=== PATIENT | male | born 1945 | race Hispanic/Latino ===

== ENCOUNTER 2018-08-15 19:04 | Emergency (ER) | payer OTHER ==
[2018-08-15] MEDS ORDERED: DEXAMETHASONE 10 MG/ML VIAL ONE (19:36)
[2018-08-15] MEDS ORDERED: HYDROCODONE/APAP 5/325 MG TAB ONE (19:37)
[2018-08-15] MEDS ORDERED: DIAZEPAM 2 MG TABLET ONE (19:37)
--- NOTE | 2018-08-15 19:54 | EDPHYS ---
Physician Documentation [facility] Name: Wilfredo Alonso Age: 72 yrs Sex: Male : 1945 Arrival Date: 08/15/2018 Time: 19:07 Bed 6 Private MD: ED Physician Guanakito Ozuna HPI: 08/15 19:38 This 72 yrs old Male presents to ER via Ambulatory with complaints of Neck rn Pain, >24Hrs Old. 19:38 The patient or guardian complains of pain, that is acute. The symptoms are located rn right neck. Onset: The symptoms/episode began/occurred 3 day(s) ago. Associated signs and symptoms: The patient has no apparent associated signs or symptoms, Pertinent negatives: chills, constipation, fever, headache, bladder incontinence, bowel incontinence, nausea, numbness, tingling, vomiting, weakness. The pain does not radiate. Modifying factors: The symptoms are alleviated by nothing. the symptoms are aggravated by movement. Severity of symptoms: At their worst the symptoms were moderate, in the emergency department the symptoms are unchanged. The patient has not experienced similar symptoms in the past. The patient has not recently seen a physician. REports 3-4 days of neck pain right sided, non-radiating, no trauma, gradual onset, hurts to turn head, no assoc neurological symptoms, reports negative MRI cervical spine 3 months ago. . Historical: - Allergies: 19:11 No Known Allergies; ch - Home Meds: 19:11 doxazosin 4 mg oral tab 1 tab once daily [Active]; methimazole 5 mg Oral tab 1 tab ch three times a week [Active]; aspirin 81 mg Oral chew 1 tab once daily [Active]; Vitamin D Oral [Active]; - PMHx: 19:11 Hypertension; erectile disfunction; ch - PSHx: 19:11 hand; ch - Immunization history:: Adult Immunizations up to date, Flu vaccine is not up to date. - Social history:: Smoking status: Smoking status: Smoking status: Patient/guardian denies using tobacco, Patient uses alcohol, admits to "couple of beers" a day. pt had some rios shine today. Patient/guardian denies using street drugs. - Ebola Screening: : Patient negative for fever greater than or equal to 101.5 degrees Fahrenheit, and additional compatible Ebola Virus Disease symptoms Patient denies exposure to infectious person Patient denies travel to an Ebola-affected area in the 21 days before illness onset No symptoms or risks identified at this time. - Family history:: not pertinent. - Hospitalizations: : No recent hospitalization is reported. ROS: 19:38 Constitutional: Negative for fever, chills, and weight loss, Eyes: Negative for injury, rn pain, redness, and discharge, Neck: + neck pain, no injury or swelling Cardiovascular: Negative for chest pain, palpitations, and edema, Respiratory: Negative for shortness of breath, cough, wheezing, and pleuritic chest pain, Abdomen/GI: Negative for abdominal pain, nausea, vomiting, diarrhea, and constipation, Back: Negative for injury and pain, : Negative for injury, bleeding, discharge, and swelling, MS/Extremity: Negative for injury and deformity, Skin: Negative for injury, rash, and discoloration, Neuro: Negative for headache, weakness, numbness, tingling, and seizure. Exam: 19:38 Constitutional: This is a well developed, well nourished patient who is awake, alert, rn and in no acute distress. Head/Face: Normocephalic, atraumatic. Eyes: Pupils equal round and reactive to light, extra-ocular motions intact. Lids and lashes normal. Conjunctiva and sclera are non-icteric and not injected. Cornea within normal limits. Periorbital areas with no swelling, redness, or edema. Neck: Trachea midline, no thyromegaly or masses palpated, no crepitus, no midline tenderness Cardiovascular: Regular rate and rhythm with a normal S1 and S2. No gallops, murmurs, or rubs. No JVD. No pulse deficits. Skin: Warm, dry with normal turgor. Normal color with no rashes, no lesions, and no evidence of cellulitis. MS/ Extremity: Pulses equal, no cyanosis. Neurovascular intact. Full, normal range of motion. Equal circumference. Neuro: Awake and alert, GCS 15, oriented to person, place, time, and situation. Cranial nerves II-XII grossly intact. Motor strength 5/5 in all extremities. Sensory grossly intact. Cerebellar exam normal. Vital Signs: 19:11 BP 104 / 80; Pulse 54; Resp 16; Temp 98.9; Pulse Ox 99% on R/A; Weight 97.52 kg; Height ch 5 ft. 11 in. (180.34 cm); Pain 9/10; 19:11 Body Mass Index 29.99 (97.52 kg, 180.34 cm) [facility]: 19:14 Patient medically screened. rn 19:50 Differential diagnosis: Cervical Discogenic Pain Cervical Raiculopathy cervical strain, rn fatuma. Data reviewed: vital signs, nurses notes, and as a result, I will discharge patient. Counseling: I had a detailed discussion with the patient and/or guardian regarding: the historical points, exam findings, and any diagnostic results supporting the discharge/admit diagnosis, the need for outpatient follow up, to return to the emergency department if symptoms worsen or persist or if there are any questions or concerns that arise at home. Response to treatment: the patient's symptoms have mildly improved after treatment, and as a result, I will discharge patient. ED course: Pt requesting to be discharged, states wants to be in his bed, mild improvement, no recent trauma or focal neurological symptoms and negative somewhat recent MRI of cervical spine, will treat as muscle spasm/torticollis, will dc home as requested by patient.. Administered Medications: 19:23 CANCELLED (Duplicate Order): Decadron - Dexamethasone 10 mg IVP once rn 19:34 Drug: Valium 2 mg Route: PO; lp1 20:04 Follow up: Response: No adverse reaction aj1 19:34 Drug: [place] 5 mg-325 mg 1 tabs Route: PO; lp1 20:03 Follow up: Response: No adverse reaction aj1 19:34 Drug: Decadron 10 mg Route: IM; Site: left deltoid; lp1 20:03 Follow up: Response: No adverse reaction aj1 Disposition: 08/15/18 19:53 Discharged to Home. Impression: Torticollis. - Condition is Stable. - Discharge Instructions: Acute Torticollis, Adult. - Prescriptions for Cyclobenzaprine 10 mg Oral Tablet - take 1 tablet by ORAL route every 8 hours As needed; 20 tablet. Medrol (Bennie) 4 mg Oral Tablets, Dose Pack - take 1 tablet by ORAL route as directed - follow package instructions; 1 packet. - Medication Reconciliation Form, Thank You Letter, Antibiotic Education, Prescription Opioid Use form. - Follow up: Private Physician; When: As needed; Reason: Recheck today's complaints, Re-evaluation by your physician. - Problem is new. - Symptoms have improved. Signatures: Mary Ann Alvarez, RN RN Shayla Delgado RN RN aj1 Guanakito Ozuna MD MD rn Pena, Laura RN RN lp1 Corrections: (The following items were deleted from the chart) 19: 19:20 IV Saline Lock ordered. rn rn : 19:20 Decadron - Dexamethasone 10 mg IVP once ordered. rn rn 20:11 19:53 08/15/2018 19:53 Discharged to Home. Impression: Torticollis. Condition is aj1 Stable. Forms are Medication Reconciliation Form, Thank You Letter, Antibiotic Education, Prescription Opioid Use. Follow up: Private Physician; When: As needed; Reason: Recheck today's complaints, Re-evaluation by your physician. Problem is new. Symptoms have improved. rn
--- NOTE | 2018-08-15 19:54 | ER ---
Nurse's Notes [facility] Name: Wilfredo Alonso Age: 72 yrs Sex: Male : 1945 Arrival Date: 08/15/2018 Time: 19:07 Bed 6 Private MD: Diagnosis: Torticollis Presentation: 08/15 19:08 Presenting complaint: Patient states: pain to neck for the past 4-5 days. no trauma. ch Transition of care: patient was not received from another setting of care. Acute neurological deficit: none identified. Onset of symptoms was August 11, 2018. Risk Assessment: Do you want to hurt yourself or someone else? Patient reports no desire to harm self or others. Initial Sepsis Screen: Does the patient meet any 2 criteria? No. Patient's initial sepsis screen is negative. Does the patient have a suspected source of infection? No. Patient's initial sepsis screen is negative. Care prior to arrival: None. 19:08 Method Of Arrival: Ambulatory 19:08 Acuity: AIDA 4 19:21 Mechanism of Injury: No Mechanism of Injury. Triage Assessment: 19:11 General: Appears in no apparent distress. uncomfortable, Behavior is cooperative, ch appropriate for age. 19:21 General: Smells of alcohol. Historical: - Allergies: 19:11 No Known Allergies; - Home Meds: 19:11 doxazosin 4 mg oral tab 1 tab once daily [Active]; methimazole 5 mg Oral tab 1 tab ch three times a week [Active]; aspirin 81 mg Oral chew 1 tab once daily [Active]; Vitamin D Oral [Active]; - PMHx: 19:11 Hypertension; erectile disfunction; ch - PSHx: 19:11 hand; - Immunization history:: Adult Immunizations up to date, Flu vaccine is not up to date. - Social history:: Smoking status: Smoking status: Smoking status: Patient/guardian denies using tobacco, Patient uses alcohol, admits to "couple of beers" a day. pt had some rios shine today. Patient/guardian denies using street drugs. - Ebola Screening: : Patient negative for fever greater than or equal to 101.5 degrees Fahrenheit, and additional compatible Ebola Virus Disease symptoms Patient denies exposure to infectious person Patient denies travel to an Ebola-affected area in the 21 days before illness onset No symptoms or risks identified at this time. - Family history:: not pertinent. - Hospitalizations: : No recent hospitalization is reported. Screenin:20 Abuse screen: Denies threats or abuse. Denies injuries from another. Nutritional ch screening: No deficits noted. Tuberculosis screening: No symptoms or risk factors identified. Fall Risk None identified. Assessment: 19:15 General: Appears in no apparent distress. uncomfortable, Behavior is cooperative, aj1 agitated. Pain: Complains of pain in right side of neck Pain does not radiate. Pain currently is 8 out of 10 on a pain scale. Aggravated by repositioning. Neuro: Level of Consciousness is awake, alert, obeys commands, Oriented to person, place, time, situation. Cardiovascular: Patient's skin is warm and dry. Respiratory: Airway is patent Respiratory effort is even, unlabored, Respiratory pattern is regular, symmetrical. GI: No signs and/or symptoms were reported involving the gastrointestinal system. : No signs and/or symptoms were reported regarding the genitourinary system. EENT: No signs and/or symptoms were reported regarding the EENT system. Derm: No signs and/or symptoms reported regarding the dermatologic system. Skin is pink, warm \\T\\ dry. normal. Musculoskeletal: Range of motion: Patient reports pain when turning his head to the side. 19:30 Reassessment: Patient is in room screaming and cussing. States "Where is the doctor. aj1 Tell him to get his ass back here! I need something for this pain! How long does it take to write a fucking prescription" Explained to patient that the doctor wrote an order to medicate him here to help ease his pain, another nurse is getting his pain medication and will be in his room within a few minutes. 19:50 Reassessment: Patient is in his room screaming and cussing again. Patient states that aj1 he wants to leave right now. Notified Dr. Ozuna. 20:07 Reassessment: While explaining discharge instructions to patient, patient states that aj1 he is upset that we did not take care of his pain during his visit. Explained to patient that we have medicated him for his pain, but it has not been enough time for the medications to take effect. Offered to patient to allow him to stay and make sure pain medications administered are effective, patient declines, states that he wants to leave now. Patient was assisted to his car via wheelchair. Vital Signs: 19:11 BP 104 / 80; Pulse 54; Resp 16; Temp 98.9; Pulse Ox 99% on R/A; Weight 97.52 kg; Height 5 ft. 11 in. (180.34 cm); Pain 9/10; 19:11 Body Mass Index 29.99 (97.52 kg, 180.34 cm) ED Course: 19:07 Patient arrived in ED. 19:08 Triage completed. 19:11 Arm band placed on right wrist. Patient placed in an exam room, on a stretcher. 19:13 Shayla Delgado, RN is Primary Nurse. aj1 19:14 Guanakito Ozuna MD is Attending Physician. rn 19:20 No apparent distress. Appears restless. 19:20 Patient has correct armband on for positive identification. Bed in low position. Call light in reach. Side rails up X 1. Adult w/ patient. 19:20 No provider procedures requiring assistance completed. 20:10 Patient did not have IV access during this emergency room visit. aj1 Administered Medications: 19:23 CANCELLED (Duplicate Order): Decadron - Dexamethasone 10 mg IVP once rn 19:34 Drug: Valium 2 mg Route: PO; lp1 20:04 Follow up: Response: No adverse reaction aj 19:34 Drug: [place] 5 mg-325 mg 1 tabs Route: PO; lp1 20:03 Follow up: Response: No adverse reaction [facility] 19:34 Drug: Decadron 10 mg Route: IM; Site: left deltoid; lp1 20:03 Follow up: Response: No adverse reaction aj Outcome: 19:53 Discharge ordered by . rn 20:11 Discharged to home via wheelchair. aj1 20:11 Condition: good 20:11 Discharge instructions given to patient, Instructed on discharge instructions, follow up and referral plans. medication usage, Demonstrated understanding of instructions, follow-up care, medications. 20:11 Patient left the ED. aj1 Signatures: Mary Ann Alvarez, RN RN Shayla Delgado RN RN aj Guanakito Ozuna MD MD rn Pena, Laura, RN RN lp
== END 2018-08-15 20:11 | disposition home or self-care (01) ==
LOC: ER 19:04
DX: M43.6 Torticollis (principal); I10 Essential (primary) hypertension; Z79.82 Long term (current) use of aspirin
CPT/HCPCS: 96372; 99283; J1100

== ENCOUNTER 2022-01-23 11:45 | Emergency (ER) | payer OTHER ==
--- OUTSIDE RECORDS SUMMARY | 2022-01-23 11:48 | XMS REPORT | Continuity of Care Document ---
:1945 Author Organization [facility] t Address [address] [place] [address] Care Team Providers Name Role Phone Caio Benedict Attending Clinician Unavailable Caio Benedict Attending Clinician Unavailable Caio Benedict Admitting Clinician Unavailable Payers Payer Name Policy Type Policy Number Effective Date Expiration Date S ource Problems This patient has no known problems. Allergies, Adverse Reactions, Alerts Allergy Allergy Status Severity Reaction(s) Onset Inactive Treating Comm ents Source Name Type Date Date Clinician No Known Drug Active [facility] Medications This patient has no known medications. Vital Signs Vital Name Observation Time Observation Value Comments Source Height/Length Measured 2021-08-21 10:52:50 180 cm Weight Dosing 2021-08-21 10:52:50 94.52 kg Height/Length Measured 2021-08-21 10:50:35 180 cm Weight Dosing 2021-08-21 10:50:35 94.52 kg Height/Length Measured 2020-01-13 17:57:39 Weight Dosing 2020-01-13 17:57:39 Procedures This patient has no known procedures. Encounters Start End Encounter Admission Attending Care Care Encounter Source Date/Time Date/Time Type Type Clinicians Facility Department ID 2020-01-13 2020-01-13 Outpatient 2 Abad Benedict [facility] [id number] 17:33:00 17:33:00 Abad Benedict [facility] 2020-01-13 2020-01-13 Outpatient 2 Abad Benedict [facility] [id number] 17:33:00 17:33:00 Abad Benedict [id number] [facility] Results This patient has no known results.
--- NOTE | 2022-01-23 13:12 | RAD REPORT ---
EXAM DESCRIPTION: RAD - Foot Left 3 View - 01/23/2022 12:59 pm CLINICAL HISTORY: foreign body, welding wire COMPARISON: No comparisons FINDINGS/IMPRESSION: No acute fracture. No malalignment. Plantar aspect calcaneal spurring. Mild mid foot degenerative changes. Tiny linear radiopaque metallic foreign body within the subcutaneous tissu es of the heel at the region of suspicion.
--- NOTE | 2022-01-23 13:36 | EDPHYS ---
Physician Documentation [facility] Name: Wilfredo Alonso Age: 76 yrs Sex: Male : 1945 Arrival Date: 01/23/2022 Time: 11:47 Bed 24 Private MD: ED Physician Guanakito Ozuna HPI: 01/23 13:33 This 76 yrs old Male presents to ER via Ambulatory with complaints of Foot rn Pain. 13:33 The complaints affect the left foot. Onset: The symptoms/episode began/occurred 1.5 rn month(s) ago. Modifying factors: The symptoms are alleviated by nothing, the symptoms are aggravated by weight bearing. Associated signs and symptoms: Pertinent negatives: fever, warmth. Severity of symptoms: At their worst the symptoms were moderate, in the emergency department the symptoms have resolved. The patient has not experienced similar symptoms in the past. Pt reports stepped on piece of wire 1.5 months ago, left heel, has been bothering him since then, [facility]'t [facility] so came here to see if we could cut it out. NO fever or drainage.. Historical: - Allergies: 12:18 No Known Allergies; ss - PMHx: 12:18 erectile disfunction; Hypertension; ss - Immunization history:: Last tetanus immunization: up to date < 5 years ago. - Social history:: Smoking status: Patient denies any tobacco usage or history of. - Family history:: not pertinent. - Hospitalizations: : No recent hospitalization is reported. ROS: 13:33 MS/extremity: Positive for pain, Negative for erythema, paresthesias. rn 13:33 Constitutional: Negative for fever, chills, and weight loss, MS/Extremity: + foreign body left heel Skin: Negative for injury, rash, and discoloration. Exam: 13:33 Constitutional: This is a well developed, well nourished patient who is awake, alert, rn and in no acute distress. MS/ Extremity: Pulses equal, no cyanosis. Neurovascular intact. Full, normal range of motion. Equal circumference. + area of swelling and tenderness left heel, no erythema or fluctuance Vital Signs: 12:15 BP 158 / 68; Pulse 82; Resp 16; Temp 98.6(TE); Pulse Ox 98% on R/A; Weight 92.99 kg; ss Height 5 ft. 6 in. (167.64 cm); Pain 3/10; 12:18 BP 153 / 81; Pulse 50; Resp 18; Pulse Ox 97% on R/A; bh1 12:55 BP 131 / 61; Pulse 52; Resp 18; Pulse Ox 98% on R/A; bh1 13:56 BP 142 / 68; Pulse 65; Resp 18; Temp 98.3(O); Pulse Ox 98% on R/A; bh1 12:15 Body Mass Index 33.09 (92.99 kg, 167.64 cm) ss MDM: 12:02 Patient medically screened. rn 13:33 Differential diagnosis: foreign body. Data reviewed: vital signs, nurses notes, rn radiologic studies, plain films, and as a result, I will discharge patient. Counseling: I had a detailed discussion with the patient and/or guardian regarding: the historical points, exam findings, and any diagnostic results supporting the discharge/admit diagnosis, the need for outpatient follow up, to return to the emergency department if symptoms worsen or persist or if there are any questions or concerns that arise at home. Special discussion: I discussed with the patient/guardian in detail that at this point there is no indication for admission to the hospital. It is understood, however, that if the symptoms persist or worsen the patient needs to return immediately for re-evaluation. Based on the history and exam findings, there is no indication for further emergent testing or inpatient evaluation. I discussed with the patient/guardian the need to see the foot roentgenologist for further evaluation of the symptoms. ED course: Small wire in heel of left foot, has been there 1.5 months, no signs of infection, will dc home with podiatry f/u.. 01/23 12:19 Order name: XRAY Foot LEFT 3 View; Complete Time: 13:14 rn Administered Medications: No medications were administered Disposition Summary: 01/23/22 13:36 Discharge Ordered Location: Home rn Problem: an ongoing problem rn Symptoms: are unchanged rn Condition: Stable rn Diagnosis - Puncture wound with foreign body, left foot rn Followup: rn - With: Private Physician - When: As needed - Reason: Recheck today's complaints, Re-evaluation by your physician Discharge Instructions: - Discharge Summary Sheet rn - Hand or Foot Foreign Body, Adult rn Forms: - Medication Reconciliation Form rn - Thank You Letter rn - Antibiotic photo mask pattern generator - Prescription Opioid Use rn Signatures: Dispatcher [employer] Guanakito Irvin MD MD rn Smirch, Shelby, RN RN ss
--- NOTE | 2022-01-23 13:36 | ER ---
Nurse's Notes [facility] Name: Wilfredo Alonso Age: 76 yrs Sex: Male : 1945 Arrival Date: 01/23/2022 Time: 11:47 Bed 24 Private MD: Diagnosis: Puncture wound with foreign body, left foot Presentation: 01/23 12:15 Chief complaint: Patient states: piece of wire stuck in L heel x 1.5 months. Pt had an ss XRAY at the [place] and was told there is something in there and made an appointment with specialist for 01/31, and was told if it is getting worse to come to the ER. Coronavirus screen: Client denies travel out of the [place] in the last 14 days. Ebola Screen: Patient denies exposure to infectious person. Patient denies travel to an Ebola-affected area in the 21 days before illness onset. Initial Sepsis Screen: Does the patient meet any 2 criteria? No. Patient's initial sepsis screen is negative. Does the patient have a suspected source of infection? No. Patient's initial sepsis screen is negative. Risk Assessment: Do you want to hurt yourself or someone else? Patient reports no desire to harm self or others. Onset of symptoms was December 2021. 12:15 Method Of Arrival: Ambulatory ss 12:15 Acuity: AIDA 3 Triage Assessment: 13:57 General: Behavior is calm, cooperative. [facility] Historical: - Allergies: 12:18 No Known Allergies; ss - PMHx: 12:18 erectile disfunction; Hypertension; ss - Immunization history:: Last tetanus immunization: up to date < 5 years ago. - Social history:: Smoking status: Patient denies any tobacco usage or history of. - Family history:: not pertinent. - Hospitalizations: : No recent hospitalization is reported. Screenin:18 Abuse screen: Denies threats or abuse. Nutritional screening: No deficits noted. [facility] Tuberculosis screening: No symptoms or risk factors identified. Fall Risk None identified. Assessment: 12:18 Reassessment: Patient appears in no apparent distress at this time. General: Appears in [facility] no apparent distress. Pain: Complains of pain in left foot. Vital Signs: 12:15 BP 158 / 68; Pulse 82; Resp 16; Temp 98.6(TE); Pulse Ox 98% on R/A; Weight 92.99 kg; Height 5 ft. 6 in. (167.64 cm); Pain 3/10; 12:18 BP 153 / 81; Pulse 50; Resp 18; Pulse Ox 97% on R/A; bh1 12:55 BP 131 / 61; Pulse 52; Resp 18; Pulse Ox 98% on R/A; bh1 13:56 BP 142 / 68; Pulse 65; Resp 18; Temp 98.3(O); Pulse Ox 98% on R/A; bh1 12:15 Body Mass Index 33.09 (92.99 kg, 167.64 cm) ED Course: 11:47 Patient arrived in ED. rg4 12:02 Guanakito Ozuna MD is Attending Physician. rn 12:18 Triage completed. 12:18 June Gonzales, JOAQUIN is Primary Nurse. [facility] 12:18 No apparent distress. Awaiting for x-ray. [facility] 12:18 Arm band placed on right wrist. 12:18 Patient has correct armband on for positive identification. Bed in low position. Call [facility] light in reach. Pulse ox on. NIBP on. 12:18 No provider procedures requiring assistance completed. Patient did not have IV access [facility] during this emergency room visit. 12:55 No apparent distress. Awaiting radiology results. [facility] 13:01 XRAY Foot LEFT 3 View In Process Unspecified. EDMS Administered Medications: No medications were administered Medication: 12:18 VIS not applicable for this client. [facility] Outcome: 13:36 Discharge ordered by . rn 13:56 Discharged to home ambulatory. [facility] 13:56 Condition: good 13:56 Discharge instructions given to patient, Instructed on discharge instructions, follow up and referral plans. Demonstrated understanding of instructions, follow-up care. 13:57 Patient left the ED. [facility] Signatures: Dispatcher [employer] EDMS Guanakito Ozuna MD MD rn Smirch, Shelby, RN RN ss Garcia, Rubi [facility] June Gonzales, JOAQUIN RN [facility]
[2022-01-23 14:14] VITALS: O2SAT 98
[2022-01-23 14:15] VITALS: BP 142/68; TEMP 98.3
== END 2022-01-23 13:57 | disposition home or self-care (01) ==
LOC: ER 11:45
DX: S91.342A Puncture wound with foreign body, left foot, initial encounter (principal); I10 Essential (primary) hypertension